=== PATIENT | male | born 2000 | race Caucasian/White ===

== ENCOUNTER 2020-11-09 02:39 | Emergency (ER) | payer SELFPAY ==
[2020-11-09 02:41] VITALS: BP 140/98; PULSE 104; RESP 14; TEMP 36.8; O2SAT 97; BMI 32.5
[2020-11-09 03:18] LABS: Absolute Neutrophil Count 5.1 X10^3/uL (2.0-7.7); Basophil# 0.04 X10^3/uL; Basophil% 0.4 % (0-1); Eosinophil# 0.33 X10^3/uL; Eosinophils% 3.6 % (0-5); Hematocrit 48.2 % (40-54); Hemoglobin 16.7 g/dL (13.0-16.5); Lymphocyte % 32.8 % (19-41); Mean Corp Hgb Conc 34.6 g/dL (32-36); Mean Corpuscular Hgb 30.4 pg (27.0-32.0); Mean Corpuscular Volume 87.6 fL (80-94); Mean Platelet Vol. 9.9 fl (6.2-12.0); Monocyte# 0.65 X10^3/uL; Monocyte% 7.1 % (0-10); NRBC Flagged by Analyzer 0 % (0-5); Neutrophil % 55.7 % (47-70); Platelet Count 313 K/mm3 (150-450); RBC Distribution Width SD 38.7 fl (35.1-43.9); White Blood Count 9.2 K/mm3 (4.4-11.0)
--- NOTE | 2020-11-09 03:29 | EX.ED.DYSGE1 ---
HPI History of Present Illness Chief Complaint: Suicidal Narrative Narrative: 20-year-old male with no history of psychiatric disease presenting with suicidal ideation. He states he has not made a plan nor has he attempted to hurt himself. Patient states that he has had suicidal thoughts in the past but he states that they were never that bad and he never sought treatment for them. Patient states that over the last month he has been increasingly thinking about this. He states he is in the [employer] and that they are supposed to go to the [employer] range on his next weekend and he is concerned he should not have a gun. He does not have homicidal ideation. PFSH PFS Home Medications NK 11/09/20 [History Last Taken Unknown] Allergy/AdvReac Type Severity Reaction Status Date / Time No Known Allergies Allergy Verified 11/09/20 02:40 Social History Smoking Status: Never smoker ROS ROS ED Constitutional Constitutional ED: Denies chills, fever(s) or sweats Eyes Eyes: Denies blurry vision or change in vision ENT ENT ED: Denies ear pain, rhinorrhea or sore throat Cardiovascular Cardiovascular: Denies chest pain, palpitations or racing heartbeat Respiratory/Chest Respiratory/Chest: Denies cough, dyspnea or sputum Gastrointestinal Gastrointestinal: Denies abdominal pain, constipation, diarrhea or vomiting Genitourinary Genitourinary ED: Denies dysuria, hematuria or urinary frequency Musculoskeletal Musculoskeletal: Denies arthralgias, myalgias or neck pain Integumentary Denies abscess, Abrasions or rash Neurologic Neurologic: Denies headache(s), paresthesias or weakness Psychiatric Psychiatric: Reports suicidal ideation and suicidal thoughts; Denies anxiety or depression Endocrine Endocrinology: Denies polydipsia or polyuria EXAM Physical Exam Const Vital Signs: 11/09/20 02:41 11/09/20 03:42 11/09/20 04:45 Temperature 98.2 F Temperature Source Oral Pulse Rate 104 H Respiratory Rate 14 16 18 Blood Pressure 140/98 H Blood Pressure Mean 112 Pulse Ox 97 Oxygen Delivery Method Room Air 11/09/20 05:00 Temperature Temperature Source Pulse Rate Respiratory Rate 16 Blood Pressure Blood Pressure Mean Pulse Ox Oxygen Delivery Method General Appearance ED: Negative for pallor HEENT Reports normocephalic, head/scalp atraumatic and moist mucous membranes Eyes PERRL and EOMs intact bilaterally Neck no lymphadenopathy and supple Chest Wall inspection of chest normal and palpation of chest normal Resp normal respiratory effort and clear to auscultation bilaterally Auscultation: Negative for rales, rhonchi or wheezes Cardio regular rate and regular rhythm GI normal to inspection, nondistended, normoactive bowel sounds and non-distended Auscultation: normoactive bowel sounds Palpation: soft Narrative: Deferred Back/Spine no CVA tenderness General Back: Negative for CVA tenderness Cervical Spine: Negative for cervical spine tenderness Extremity normal to inspection General Extremety ED: Yes edema and tenderness General Extremity: edema Neuro oriented x3 and CN's II-XII intact bilaterally Sensorium / Orientation: alert Motor Exam: strength 5/5 throughout Psych mental status grossly normal Appearance: grossly normal Attitude: calm and No agitated Speech: normal speech Thought Content: suicidality and No homicidality Skin no rashes or lesions noted and no wounds General Skin Exam: Negative for jaundice or pallor MDM MDM MDM Narrative Medical decision making narrative: Patient presenting with suicidal ideation. He has not made a plan. Patient wishing to speak with crisis given his upcoming where they are going to the rifle range. He has no homicidal ideation. Patient's lab work-up was unremarkable. Drug screen is negative. EtOH negative. Patient medically cleared at this time. Crisis was called. After speaking with crisis patient feels comfortable being discharged home and will follow up with behavioral health. Crisis also states they will reach out to them. They did contract for safety. I feel this is reasonable at this time. Patient is counseled to return for any new or worsening symptoms. Lab Data Attestation: I reviewed the patient's lab results. Labs: Laboratory Results - last 24 hr 11/09/20 11/09/20 11/09/20 03:05 03:05 03:05 WBC 9.2 RBC 5.50 Hgb 16.7 H Hct 48.2 MCV 87.6 MCH 30.4 MCHC 34.6 RDW Std Deviation 38.7 RDW Coeff of Melisa 12.0 Plt Count 313 MPV 9.9 Immature Gran % (Auto) 0.400 Neut % (Auto) 55.7 Lymph % (Auto) 32.8 Cherry % (Auto) 7.1 Eos % (Auto) 3.6 Baso % (Auto) 0.4 Absolute Neuts (auto) 5.1 Absolute Lymphs (auto) 3.00 Nucleated RBC % 0 Sodium 136 Potassium 3.8 Chloride 103 Carbon Dioxide 26.0 Anion Gap 7 BUN 14 Creatinine 0.86 Estim Creat Clear Calc 125.97 Est GFR (MDRD) Af Amer 142 Est GFR (MDRD) Non-Af 117 BUN/Creatinine Ratio 16.2 Glucose 100 Calcium 9.5 Urine Opiates Screen Urine Methadone Screen Ur Barbiturates Screen Ur Phencyclidine Scrn Ur Amphetamines Screen U Methamphetamin-MDMA U Benzodiazepines Scrn Urine Cocaine Screen U Cannabinoids Screen Ur Drug Screen Comment Ethyl Alcohol < 3.0 11/09/20 04:05 WBC RBC Hgb Hct MCV MCH MCHC RDW Std Deviation RDW Coeff of Melisa Plt Count MPV Immature Gran % (Auto) Neut % (Auto) Lymph % (Auto) Cherry % (Auto) Eos % (Auto) Baso % (Auto) Absolute Neuts (auto) Absolute Lymphs (auto) Nucleated RBC % Sodium Potassium Chloride Carbon Dioxide Anion Gap BUN Creatinine Estim Creat Clear Calc Est GFR (MDRD) Af Amer Est GFR (MDRD) Non-Af BUN/Creatinine Ratio Glucose Calcium Urine Opiates Screen NEGATIVE Urine Methadone Screen NEGATIVE Ur Barbiturates Screen NEGATIVE Ur Phencyclidine Scrn NEGATIVE Ur Amphetamines Screen NEGATIVE U Methamphetamin-MDMA NEGATIVE U Benzodiazepines Scrn NEGATIVE Urine Cocaine Screen NEGATIVE U Cannabinoids Screen NEGATIVE Ur Drug Screen Comment Ethyl Alcohol Discharge Plan Triage Chief Complaint: Suicidal ED Provider: Morteza Crouch Dx/Rx/DC Orders Instructions: CONTRACT, No Harm Prescriptions: No Action NK RF: 0 Primary Care Provider: Care Physician,No Primary Referrals: Behavioral,Health [facility]] - Care Physician,No Primary [Primary Care Provider] - Disposition Patient Disposition: Home, self care
[2020-11-09 03:30] LABS: Anion Gap 7 (5-15); BUN 14 mg/dL (7-18); BUN/Creat Ratio 16.2 RATIO (10-20); Calcium,Total 9.5 mg/dL (8.5-10.1); Chloride 103 mmol/L (98-107); Creatinine, Serum 0.86 mg/dL (0.70-1.30); EST Glomerular Filtration Rate 117 mL/min (>60); Est Glom Filt Rate - Afr Amer 142 mL/min (>60); Estimated Creatinine Clearance 125.97 ml/min; Glucose 100 mg/dL (74-106); Potassium 3.8 mmol/L (3.5-5.1); Sodium Level 136 mmol/L (136-145)
[2020-11-09 03:42] VITALS: RESP 16
[2020-11-09 03:45] LABS: Alcohol, Blood (Medical)-Serum < 3.0 mg/dL
[2020-11-09 04:22] LABS: Amphetamine Urine VISTA NEGATIVE (<1000 ng/mL); Barbiturate Urine VISTA NEGATIVE (< 200 ng/mL); Benzodiazepine Urine VISTA NEGATIVE (< 200 ng/mL); Cocaine Urine VISTA NEGATIVE (< 300 ng/mL); Ecstacy Urine VISTA NEGATIVE (< 500 ng/mL); Methadone Urine VISTA NEGATIVE (< 300 ng/mL); PCP Urine VISTA NEGATIVE (< 25 ng/mL); THC Urine VISTA NEGATIVE (< 50 ng/mL); Vista UDS pH Range 6
[2020-11-09 04:45] VITALS: RESP 18
[2020-11-09 05:00] VITALS: RESP 16
[2020-11-09 06:23] VITALS: RESP 16
== END 2020-11-09 06:24 | disposition home or self-care (01) ==
PROVIDERS: Emergency Provider Student in an Organized Health Care Education/Training Program
DX: R45.851 Suicidal ideations (principal)
CPT/HCPCS: 80048; 80307; 82077; 85025; 87426; 99285